=== PATIENT | male | born 1945 | race Caucasian/White ===

== ENCOUNTER 2023-06-03 13:29 | Outpatient (CLI) | payer OTHER, SELFPAY ==
[2023-06-03] MEDS: PERFLUTREN LIPID MICROSPHERES 2 ML VIAL IV (17:09)
== END 2023-06-03 13:30 | disposition home or self-care (01) ==
LOC: RAD 13:39
PROVIDERS: Visit Provider Chiropractor
DX: I25.9 Chronic ischemic heart disease, unspecified (principal); I51.7 Cardiomegaly; I34.0 Nonrheumatic mitral (valve) insufficiency
CPT/HCPCS: 93306; Q9957